=== PATIENT | female | born 1995 | race Asian ===

== ENCOUNTER 2016-04-05 13:53 | Observation (INO) | payer OTHER ==
[2016-04-05 14:03] VITALS: BMI 19.8
[2016-04-05] MEDS ORDERED: SODIUM CHLORIDE 1,000 ML IV STA ×3 (15:39→20:32)
[2016-04-05] MEDS ORDERED: ONDANSETRON 4 MG/2 ML VIAL IVPUSH ONE ×2 (15:55→20:32)
[2016-04-05] MEDS ORDERED: PANTOPRAZOLE SODIUM 40 MG in SODIUM CHLORIDE 100 ML IVPB ONE (15:55)
--- NOTE | 2016-04-05 16:35 | PDOC ---
History of Present Illness - General History Source: Patient Exam Limitations: No Limitations - History of Present Illness Initial Comments: 04/05/16 16:45 The patient is a 20 year old female with no significant past medical history, who presents to the ER with abdominal pain, vomiting, and no PO intake for several days. Patient states she began to feel chest tightness and epigastric pain with eating 6 days ago. She states she went to the urgent care 2 days ago and came back with negative test results, including a negative gallbladder scan. Patient was referred to the GI doctor. Symptoms persisted and patient went to [facility] ER two days ago and was given omeprazole, sucralfate, and ranitidine. Patient states she has not been able to eat for the past six days. She reports having six episodes of nonbilious/ non bloody vomiting last night without relief of symptoms. Patient also reports having chills for the past two days. She went to [facility] ER again today before coming to the ER here. She denies lightheadedness, diarrhea, headache, fever, or cough. <Kasey Mason - Last Filed: 04/05/16 16:45> <Dominga Murguia - Last Filed: 04/05/16 21:39> - General Chief Complaint: Pain, Acute Stated Complaint: WEAKNESS/ABDOMINAL PAIN Time Seen by Provider: 04/05/16 15:38 Past History <Kasey Mason - Last Filed: 04/05/16 16:45> - Past Medical History Other medical history: NONE - Psycho/Social/Smoking Cessation Hx Anxiety: No Suicidal Ideation: No Smoking History: Never smoked Have you smoked in the past 12 months: No Information on smoking cessation initiated: No Hx Alcohol Use: No Drug/Substance Use Hx: No Substance Use Type: None <Dominga Murguia - Last Filed: 04/05/16 21:39> - Past Medical History Allergies/Adverse Reactions: Allergies Allergy/AdvReac Type Severity Reaction Status Date / Time Penicillins Allergy Verified 04/05/16 13:59 Home Medications: Ambulatory Orders NK [No Known Home Medication] 04/05/16 Review of Systems - Review of Systems Able to Perform ROS?: Yes Comments:: 04/05/16 16:50 GENERAL/CONSTITUTIONAL: Chills, weakness. No fever. HEAD, EYES, EARS, NOSE AND THROAT: No change in vision. No ear pain or discharge. No sore throat. CARDIOVASCULAR: Chest tightness. No chest pain or shortness of breath. RESPIRATORY: No cough, wheezing, or hemoptysis. GASTROINTESTINAL: Abdominal pain, nausea, vomiting. No diarrhea or constipation. GENITOURINARY: No dysuria, frequency, or change in urination. MUSCULOSKELETAL: No joint or muscle swelling or pain. No neck or back pain. SKIN: No rash NEUROLOGIC: No headache, vertigo, loss of consciousness, or change in strength/ sensation. ENDOCRINE: No increased thirst. No abnormal weight change. HEMATOLOGIC/LYMPHATIC: No anemia, easy bleeding, or history of blood clots. ALLERGIC/IMMUNOLOGIC: No hives or skin allergy. <[facility],Kasey - Last Filed: 04/05/16 16:45> *Physical Exam - Vital Signs Last Vital Signs Temp Pulse Resp BP Pulse Ox 97.9 F 77 18 127/93 100 04/05/16 13:59 04/05/16 13:59 04/05/16 13:59 04/05/16 13:59 04/05/16 13:59 - Physical Exam Comments: 04/05/16 16:55 GENERAL: Awake, alert, and fully oriented, in no acute distress HEAD: No signs of trauma EYES: PERRLA, EOMI, sclera anicteric, conjunctiva clear ENT: Dry mucous membranes. Auricles normal inspection, hearing grossly normal, nares patent, oropharynx clear without exudates. NECK: Normal ROM, supple, no lymphadenopathy, JVD, or masses LUNGS: Breath sounds equal, clear to auscultation bilaterally. No wheezes, and no crackles HEART: Regular rate and rhythm, normal S1 and S2, no murmurs, rubs or gallops ABDOMEN: Tenderness on the right upper and right lower abdomen. Soft, normoactive bowel sounds. No guarding, no rebound. No masses EXTREMITIES: Normal range of motion, no edema. No clubbing or cyanosis. No cords, erythema, or tenderness NEUROLOGICAL: Cranial nerves II through XII grossly intact. Normal speech, normal gait SKIN: Warm, Dry, normal turgor, no rashes or lesions noted. <[facility],Kasey - Last Filed: 04/05/16 16:45> - Vital Signs Last Vital Signs Temp Pulse Resp BP Pulse Ox 97.9 F 77 18 127/93 100 04/05/16 13:59 04/05/16 13:59 04/05/16 13:59 04/05/16 13:59 04/05/16 13:59 <Dominga Murguia - Last Filed: 04/05/16 21:39> ED Treatment Course - LABORATORY CBC & Chemistry Diagram: 04/05/16 16:35 04/05/16 16:35 <Kasey Mason - Last Filed: 04/05/16 16:45> - LABORATORY CBC & Chemistry Diagram: 04/05/16 16:35 04/05/16 16:35 <Dmoinga Murguia - Last Filed: 04/05/16 21:39> Medical Decision Making - Medical Decision Making 04/05/16 17:[address] Dobbs at 5pm shift change. She was at [facility] earlier today, has been unable to tolerate PO since last night. Exam shows dry mucous membranes, RLQ tenderness. She has received zofran and protonix. Labs pending (however she has copy of labs from this afternoon- negative, CMP wnl, UA showing ketones). Awaiting CT a/p to r/o appendicitis vs other intra -abdominal pathology. She has been unable to tolerate PO contrast. F/u CT. If no acute findings, would attempt PO challenge. Low threshold for admission, as her symptoms are not improving. <Dominga Murguia - Last Filed: 04/05/16 21:39> *DC/Admit/Observation/Transfer - Attestations Scribe Attestion: 04/05/16 16:58 Documentation prepared by Kasey Mason, acting as ophthalmic medical technologist for Dominga Murguia MD, /DO. <Kasey Mason - Last Filed: 04/05/16 16:45> <Dominga Murguia - Last Filed: 04/05/16 21:39> Diagnosis at time of Disposition: Mesenteric adenitis, Nausea and vomiting - Discharge Dispostion Condition at time of disposition: Stable
[2016-04-05] MEDS ORDERED: PANTOPRAZOLE SODIUM 100 ML IVPB ONE (16:42)
[2016-04-05] MEDS ORDERED: ONDANSETRON 4 MG/2 ML VIAL ONE ×2 (16:43→20:36)
[2016-04-05 16:44] LABS: BASOPHIL 0.3 % (0-2.0); MCHC 33.9 g/dl (32.0-36.0); MEAN CELL VOLUME 91.4 fl (80-96); MEAN PLT VOLUME 8.1 fl (7.5-11.1); NEUTROPHILS 73.6 % (42.8-82.8); PLATELET COUNT 276 K/MM3 (134-434); RDW 12.5 % (11.6-15.6); WHITE BLOOD COUNT 7.2 K/mm3 (4.0-10.0)
[2016-04-05] MEDS ORDERED: PANTOPRAZOLE SODIUM 40 MG VIAL ONE (16:44)
[2016-04-05 16:50] LABS: URINE APPEARANCE CLEAR; URINE BILIRUBIN NEGATIVE (NEGATIVE); URINE BLOOD NEGATIVE (NEGATIVE); URINE COLOR YELLOW; URINE GLUCOSE (UA) 1+ (NEGATIVE); URINE KETONE 2+ (NEGATIVE); URINE LEUK ESTERASE NEGATIVE (NEGATIVE); URINE NITRITE NEGATIVE (NEGATIVE); URINE UROBILINOGEN NEGATIVE E.U./dl (0.2-1.0)
[2016-04-05 16:51] LABS: URINE PROTEIN 1+ (NEGATIVE)
[2016-04-05 17:12] LABS: ALBUMIN 4.1 g/dl (3.4-5.0); ANION GAP 10 (8-16); CALCIUM 8.8 mg/dL (8.5-10.1); CO2 25 mmol/L (21-32); CREATININE 0.5 mg/dL (0.55-1.02); GLUCOSE,RANDOM 99 mg/dL (74-106); SGOT/AST 12 U/L (15-37); SGPT/ALT 15 U/L (12-78); TOT PROT 7.1 g/dl (6.4-8.2)
[2016-04-05 17:13] LABS: ALK PHOS 35 U/L (45-117)
--- NOTE | 2016-04-05 20:34 | PDOC ---
*Physical Exam - Vital Signs Last Vital Signs Temp Pulse Resp BP Pulse Ox 97.9 F 74 18 133/82 95 04/05/16 13:59 04/05/16 19:59 04/05/16 19:59 04/05/16 19:59 04/05/16 19:59 ED Treatment Course - LABORATORY CBC & Chemistry Diagram: 04/05/16 16:35 04/05/16 16:35 - ADDITIONAL ORDERS Additional order review: Laboratory Results 04/05/16 04/05/16 16:35 16:35 Sodium 135 L Potassium 3.8 Chloride 100 Carbon Dioxide 25 Anion Gap 10 BUN 8 Creatinine 0.5 L Creat Clearance w eGFR > 60 Random Glucose 99 Calcium 8.8 Total Bilirubin 1.0 AST 12 L ALT 15 Alkaline Phosphatase 35 L Total Protein 7.1 Albumin 4.1 Lipase 60 L Serum , Qual Negative Urine Color Yellow Urine Appearance Clear Urine pH 5.0 Ur Specific [place] 1.030 Urine Protein 1+ H Urine Glucose (UA) 1+ H Urine Ketones 2+ H Urine Blood Negative Urine Nitrite Negative Urine Bilirubin Negative Urine Urobilinogen Negative Ur Leukocyte Esterase Negative 04/05/16 16:35 RBC 4.36 MCV 91.4 MCHC 33.9 RDW 12.5 MPV 8.1 Neutrophils % 73.6 Lymphocytes % 17.9 Monocytes % 8.2 Eosinophils % 0.0 Basophils % 0.3 - RADIOLOGY Radiology Studies Ordered: Category Date Time Status ABDOMEN & PELVIS CT WITH CONTR [CT] Stat CT Scan 04/05/16 16:54 Taken - Medications Given in the ED: ED Medications Discontinued Medications Generic Name Dose Route Start Last Admin Trade Name Freq PRN Reason Stop Dose Admin Sodium Chloride 1,000 mls @ 1,000 mls/hr 04/05/16 15:39 04/05/16 16:52 Normal Saline - IV 04/05/16 16:38 1,000 mls/hr ASDIR STA Administration Pantoprazole Sodium 40 mg/ 100 mls @ 200 mls/hr 04/05/16 15:55 04/05/16 16:52 Sodium Chloride IVPB 04/05/16 16:24 200 mls/hr ONCE ONE Administration Sodium Chloride 1,000 mls @ 1,000 mls/hr 04/05/16 16:54 04/05/16 18:46 Normal Saline - IV 04/05/16 17:53 1,000 mls/hr ASDIR STA Administration Ondansetron HCl 4 mg 04/05/16 15:55 04/05/16 16:52 Zofran Injection IVPUSH 04/05/16 15:56 4 mg ONCE ONE Administration Progress Note - Progress Note Progress Note: This patient was endorsed to me at [address] Murguia pending CT scan of the abdomen and pelvis. The CT scan showed inflammation of the mesenteric lymph nodes in the right lower quadrant with no appendicitis. I have reevaluated the patient multiple times since 5 PM. I have attempted to advance the patient's diet first starting with ice and then clear fluids but the patient has repeated episodes of nausea and bilious vomiting. Her abdomen is soft with mild right lower quadrant tenderness. The plan is to admit the patient for repeat abdominal exams, IV fluids for hydration, antiemetic therapy. *DC/Admit/Observation/Transfer Diagnosis at time of Disposition: Mesenteric lymphadenitis, Nausea and vomiting - Discharge Dispostion Condition at time of disposition: Stable Admit: Yes
--- NOTE | 2016-04-05 20:55 | PN ---
<Conner Burton - Last Filed: 04/05/16 20:55> Teaching Attending Note Name of Resident: Panchito Barrios ATTENDING PHYSICIAN STATEMENT I saw and evaluated the patient. I reviewed the resident's note and discussed the case with the resident. I agree with the resident's findings and plan as documented. SUBJECTIVE: OBJECTIVE: ASSESSMENT AND PLAN: <Mike Naranjoke - Last Filed: 04/05/16 22:17> Teaching Attending Note ATTENDING PHYSICIAN STATEMENT I saw and evaluated the patient. I reviewed the resident's note and discussed the case with the resident. I agree with the resident's findings and plan as documented. Imaging data and chart reviewed. SUBJECTIVE: The patient is a 20 year old female with no significant past medical history, who presented to the ER with chest and epigastric pain for several days. Patient stated she has had intermittent chest pain when eating for the last 6 months and that it has exacerbated in the last 6 days. Patient described her chest pain as tight, localized to the mid sternal region. Patient described her epigastric pain as constant pressure, non-radiating, and exacerbated by any oral intake. Patient reported that yesterday, she began experiencing nausea, vomiting, loss of appetite, chills, and sweats secondary to her epigastric pain. The patient reported that she has had 6 episodes of nonbloody (bilious) vomiting for 2 days. Patient has presented to Urgent Care and [facility] since onset of symptoms. The patient denied lightheadedness , cough, diarrhea, hematochezia. Patient reported subjective fever, sweats, and chills for 2 days. OBJECTIVE: Vital Signs: Last Vital Signs Temp Pulse Resp BP Pulse Ox 97.9 F 74 18 133/82 95 04/05/16 13:59 04/05/16 19:59 04/05/16 19:59 04/05/16 19:59 04/05/16 19:59 Physical Exam: GENERAL: Awake, alert, and fully oriented, in no acute distress. HEENT: Atraumatic. Moist mucosa. Normocephalic. No sinus tenderness. No LAD. NECK: No JVD. No thyroid masses. Supple. LUNGS: Clear to auscultation bilaterally. No wheezing, rhonchi or rales. HEART: Regular rate and rhythm, normal S1 and S2, no murmurs, rubs or gallops, peripheral pulses normal and equal bilaterally. ABDOMEN: (+) Diffuse tenderness and decreased bowel sounds. Soft, no guarding, no rebound. No Masses. MUSCULOSKELETAL: No joint tenderness or erythema. No muscle tenderness. Normal muscle bulk and tone. EXTREMITIES: Normal inspection, No edema. No clubbing or cyanosis. Moves all extremities. SKIN: Warm, dry, normal turgor, no rashes or lesions noted. Labs: CBCD WBC 7.2 K/mm3 (4.0-10.0) 04/05/16 16:35 RBC 4.36 M/mm3 (3.60-5.2) 04/05/16 16:35 Hgb 13.5 GM/dL (10.7-15.3) 04/05/16 16:35 Hct 39.9 % (32.4-45.2) 04/05/16 16:35 MCV 91.4 fl (80-96) 04/05/16 16:35 MCHC 33.9 g/dl (32.0-36.0) 04/05/16 16:35 RDW 12.5 % (11.6-15.6) 04/05/16 16:35 Plt Count 276 K/MM3 (134-434) 04/05/16 16:35 MPV 8.1 fl (7.5-11.1) 04/05/16 16:35 CMP Sodium 135 mmol/L (136-145) L 04/05/16 16:35 Potassium 3.8 mmol/L (3.5-5.1) 04/05/16 16:35 Chloride 100 mmol/L (98-107) 04/05/16 16:35 Carbon Dioxide 25 mmol/L (21-32) 04/05/16 16:35 Anion Gap 10 (8-16) 04/05/16 16:35 BUN 8 mg/dL (7-18) 04/05/16 16:35 Creatinine 0.5 mg/dL (0.55-1.02) L 04/05/16 16:35 Creat Clearance w eGFR > 60 (>60) 04/05/16 16:35 Calcium 8.8 mg/dL (8.5-10.1) 04/05/16 16:35 Total Bilirubin 1.0 mg/dL (0.2-1.0) 04/05/16 16:35 AST 12 U/L (15-37) L 04/05/16 16:35 ALT 15 U/L (12-78) 04/05/16 16:35 Alkaline Phosphatase 35 U/L (45-117) L 04/05/16 16:35 Total Protein 7.1 g/dl (6.4-8.2) 04/05/16 16:35 Albumin 4.1 g/dl (3.4-5.0) 04/05/16 16:35 CBC, BMP 04/05/16 16:35 04/05/16 16:35 Imaging: CT Abdomen and Pelvis. Impression: The appendix is normal There are shotty mesenteric lymph nodes in the right lower quadrant measuring up to 6 mm in short axis which are nonspecific although compatible with mesenteric adenitis No bowel distention Partially collapsed cyst in the left ovary measuring 1.8 cm Retroverted uterus with otherwise normal appearance Area of fatty infiltration in the left lobe of the liver about the fissure for the falciform ligament. The upper abdominal visceral organs are otherwise unremarkable The visualized lung bases are clear Interpreted and read by radiologist: Dr. Sandip Miranda ASSESSMENT AND PLAN: 1. Intractable vomiting and inability to tolerate PO- Dysphagia with swallowing for 6 months which has worsened over the past 6 days. Suggest esophageal dysfunction possibly esophageal spasm versus anatomic abnormality. Possible viral versus toxin gastroenteritis from food. - IVF - Zofran 4mg IVPB Q6H PRN if nausea and vomiting - Tylenol IV if pain - Can give trial of calcium channel blockers - GI consult 2. DVT risk is low -NPO -Early ambulation -SCDs Admit to observation Documentation prepared by Justus Naranjo, acting as medical office secretary for Dr. Micheal MD
--- NOTE | 2016-04-05 21:52 | HP ---
CHIEF COMPLAINT: pain abdomen, nausea, vomiting PCP: HISTORY OF PRESENT ILLNESS: The patient is a 20 year old female with no significant past medical history, who presents to the ER with abdominal pain since six days , vomiting from last night, and decrease PO intake for 3-4 days. Patient states she began to feel chest tightness and epigastric pain with eating 6 days ago. Pain was present in epigastric and middle of chest, pressure type, non radiating, pain occur on eating, get relieved by itself. She has couple of episodes of similar kind of pain in last few months. Pain not associated with sob. She states she went to the urgent care 2 days ago and came back with negative test results, including a negative gallbladder scan. Last night She reports having six episodes of bilious/ non bloody vomiting last night without relief of symptoms. Patient also reports having chills and diaphoresis last night. She denies lightheadedness, diarrhea, headache, fever, or cough. She denies burning micturation. patient also reports ER course was notable for: (1) Iv fluid, cbc, cmp (2)urine toxicology (3) Zofran, protonix Recent Travel: No PAST MEDICAL HISTORY: NO PAST SURGICAL HISTORY: No Social History: Smoking: No Alcohol: ocassional Drugs: no Family History: Allergies Penicillins Allergy (Verified 04/05/16 13:59) HOME MEDICATIONS: Home Medications Medication Instructions Recorded NK [No Known Home Medication] 04/05/16 REVIEW OF SYSTEMS CONSTITUTIONAL: Absent: fever, chills, diaphoresis, generalized weakness, malaise, loss of appetite, weight change HEENT: Absent: rhinorrhea, nasal congestion, throat pain, throat swelling, difficulty swallowing, mouth swelling, ear pain, eye pain, visual changes CARDIOVASCULAR: Absent: chest pain, syncope, palpitations, irregular heart rate, lightheadedness , peripheral edema RESPIRATORY: Absent: cough, shortness of breath, dyspnea with exertion, orthopnea, wheezing, stridor, hemoptysis GASTROINTESTINAL: Absent: abdominal pain, abdominal distension, nausea, vomiting, diarrhea, constipation, melena, hematochezia GENITOURINARY: Absent: dysuria, frequency, urgency, hesitancy, hematuria, flank pain, genital pain MUSCULOSKELETAL: Absent: myalgia, arthralgia, joint swelling, back pain, neck pain SKIN: Absent: rash, itching, pallor HEMATOLOGIC/IMMUNOLOGIC: Absent: easy bleeding, easy bruising, lymphadenopathy, frequent infections ENDOCRINE: Absent: unexplained weight gain, unexplained weight loss, heat intolerance, cold intolerance NEUROLOGIC: Absent: headache, focal weakness or paresthesias, dizziness, unsteady gait, seizure, mental status changes, bladder or bowel incontinence PSYCHIATRIC: Absent: anxiety, depression, suicidal or homicidal ideation, hallucinations. PHYSICAL EXAMINATION Vital Signs - 24 hr 04/05/16 04/05/16 13:59 19:59 Temperature 97.9 F Pulse Rate 77 Pulse Rate [ 74 Radial] Respiratory 18 18 Rate Blood Pressure 127/93 Blood Pressure 133/82 [Left Arm] O2 Sat by Pulse 100 95 Oximetry (%) GENERAL: Awake, alert, and fully oriented, in no acute distress. HEAD: Normal with no signs of trauma. EYES: Pupils equal, round and reactive to light, extraocular movements intact, sclera anicteric, conjunctiva clear. No lid lag. EARS, NOSE, THROAT: Ears normal, nares patent, oropharynx clear without exudates. Moist mucous membranes. NECK: Normal range of motion, supple without lymphadenopathy, JVD, or masses. LUNGS: Breath sounds equal, clear to auscultation bilaterally. No wheezes, and no crackles. No accessory muscle use. HEART: Regular rate and rhythm, normal S1 and S2 without murmur, rub or gallop. ABDOMEN: Soft, mild tender in epigastric RUQ and RLQ, not distended, normoactive bowel sounds, no guarding, no rebound, no masses. No hepatomegaly or splenomegaly. MUSCULOSKELETAL: Normal range of motion at all joints. No bony deformities or tenderness. No CVA tenderness. UPPER EXTREMITIES: 2+ pulses, warm, well-perfused. No cyanosis. No clubbing. Cap refill <2 seconds. No peripheral edema. LOWER EXTREMITIES: 2+ pulses, warm, well-perfused. No calf tenderness. No peripheral edema. NEUROLOGICAL: Cranial nerves II-XII intact. Normal speech. Normal gait. PSYCHIATRIC: Cooperative. Good eye contact. Appropriate mood and affect. SKIN: Warm, dry, normal turgor, no rashes or lesions noted. Laboratory Results - last 24 hr 04/05/16 04/05/16 04/05/16 16:35 16:35 16:35 WBC 7.2 RBC 4.36 Hgb 13.5 Hct 39.9 MCV 91.4 MCHC 33.9 RDW 12.5 Plt Count 276 MPV 8.1 Neutrophils % 73.6 Lymphocytes % 17.9 Monocytes % 8.2 Eosinophils % 0.0 Basophils % 0.3 Sodium 135 L Potassium 3.8 Chloride 100 Carbon Dioxide 25 Anion Gap 10 BUN 8 Creatinine 0.5 L Creat Clearance w eGFR > 60 Random Glucose 99 Calcium 8.8 Total Bilirubin 1.0 AST 12 L ALT 15 Alkaline Phosphatase 35 L Total Protein 7.1 Albumin 4.1 Lipase 60 L Serum , Qual Negative Urine Color Yellow Urine Appearance Clear Urine pH 5.0 Ur Specific [place] 1.030 Urine Protein 1+ H Urine Glucose (UA) 1+ H Urine Ketones 2+ H Urine Blood Negative Urine Nitrite Negative Urine Bilirubin Negative Urine Urobilinogen Negative Ur Leukocyte Esterase Negative The CT scan showed inflammation of the mesenteric lymph nodes in the right lower quadrant with no appendicitis. ASSESSMENT/PLAN: The patient is a 20 year old female with no significant past medical history, who presents to the ER with abdominal pain since six days , vomiting from last night, Intractable Vomiting/ Mesentric lymphadenitis : unable to tolerate PO, Possible viral versus toxin gastroenteritis from food. IV fluid D5NS at 100ml/hr on zofran IV 4mg prn IV protonix 40mg IV daily monitor vitals NPO for now ( patient vomits and complains of pain in chest on eating ) Chest Pain/ epigasrtric pain : Possibly due to esophageal spasm. complains of pain on eating from couple on months which got worse 6 days ago gastro consult consider calcium channel gaby Fluid : d5ns 100ml/hr electrolyte : normal nutrition: NPO for now dvt pro: b/l scd, ambulatory Gi pro: on protonix Dispo; place in observation [facility] surg Visit type - Emergency Visit Emergency Visit: Yes ED Registration Date: 04/05/16 Care time: The patient presented to the Emergency Department on the above date and was hospitalized for further evaluation of their emergent condition. - New Patient This patient is new to me today: Yes Date on this admission: 04/06/16 - Critical Care Critical Care patient: No
[2016-04-05] MEDS: DEXTROSE 5%-NORMAL SALINE 1,000 ML IV SCH (23:28)
[2016-04-06 01:00] LABS: URINE MARIJUANA THC POSITIVE ng/ml (CUTOFF=50)
[2016-04-06] MEDS ORDERED: KETOROLAC TROMETHAMINE 30 MG/1 ML VIAL IVPUSH ONE ×2 (02:53→06:45)
[2016-04-06 07:29] LABS: BASOPHIL 0.1 % (0-2.0); EOSINOPHIL 0.1 % (0-4.5); MCH 30.9 pg (25.7-33.7); MEAN CELL VOLUME 90.9 fl (80-96); MEAN PLT VOLUME 8.2 fl (7.5-11.1); NEUTROPHILS 71.8 % (42.8-82.8); PLATELET COUNT 254 K/MM3 (134-434); RDW 12.2 % (11.6-15.6); WHITE BLOOD COUNT 8.1 K/mm3 (4.0-10.0)
[2016-04-06] MEDS ORDERED: MAG HYDROX/AL HYDROX/SIMETH 30 ML UNIT-DOSE CUP PO PRN (07:40)
--- NOTE | 2016-04-06 07:49 | PN ---
Progress Note, Physician - Current Medication List Current Medications: Active Medications Al Hydroxide/Mg Hydroxide (Mylanta Oral Suspension -) 30 ml PO Q6H PRN PRN Reason: DYSPEPSIA Dextrose/Sodium Chloride (D5-Ns -) 1,000 mls @ 100 mls/hr IV ASDIR ISADORA Last Admin: 04/05/16 23:28 Dose: 100 mls/hr Pantoprazole Sodium 40 mg/ (Sodium Chloride) 100 mls @ 200 mls/hr IVPB DAILY [facility] Ondansetron HCl (Zofran Injection) 4 mg IVPB Q4H PRN PRN Reason: NAUSEA AND/OR VOMITING - Objective Vital Signs: Vital Signs Temperature 99.0 F 04/06/16 07:10 Pulse Rate 71 04/06/16 07:10 Respiratory Rate 20 04/06/16 07:10 Blood Pressure 153/100 04/06/16 07:10 O2 Sat by Pulse Oximetry (%) 99 04/05/16 23:15 Constitutional: Yes: Well Nourished, No Distress, Calm Eyes: Yes: WNL, Conjunctiva Clear HENT: Yes: WNL, Atraumatic, Normocephalic Neck: Yes: WNL, Supple, Trachea Midline Cardiovascular: Yes: WNL, Regular Rate and Rhythm Respiratory: Yes: WNL, Regular, CTA Bilaterally Gastrointestinal: Yes: Normal Bowel Sounds, Soft, Tenderness. No: Tenderness, Rebound Musculoskeletal: Yes: WNL Extremities: Yes: WNL Edema: No Integumentary: Yes: WNL Neurological: Yes: WNL, Alert, Oriented ...Motor Strength: WNL Psychiatric: Yes: WNL Labs: CBC, BMP 04/06/16 06:00 Impression/Plan Impression/Plan: 20 year old woman admitted for severe nausea/vomitting -symptoms began last week and have been persistant -CT appears to show gastritis with some lymph node enlargement; follow up official read -follow up GI consult -trial of clear liquids when able -cont IVF -zofran prn Visit type - Emergency Visit Emergency Visit: Yes ED Registration Date: 04/05/16 Care time: The patient presented to the Emergency Department on the above date and was hospitalized for further evaluation of their emergent condition. - New Patient This patient is new to me today: Yes Date on this admission: 04/06/16 - Critical Care Critical Care patient: No - Discharge Referral Referred to [facility] Med [facility] No
[2016-04-06] MEDS ORDERED: METOCLOPRAMIDE HCL INJECTION 10 MG/2 ML VIAL IVPB PRN (08:12)
[2016-04-06 08:46] LABS: ALBUMIN 3.8 g/dl (3.4-5.0); ALK PHOS 36 U/L (45-117); ANION GAP 9 (8-16); CALCIUM 7.9 mg/dL (8.5-10.1); CO2 25 mmol/L (21-32); CREATININE 0.5 mg/dL (0.55-1.02); GLUCOSE,RANDOM 106 mg/dL (74-106); PHOSPHOROUS 1.9 mg/dL (2.5-4.9); SGOT/AST 10 U/L (15-37); SGPT/ALT 15 U/L (12-78); TOT PROT 6.4 g/dl (6.4-8.2)
--- NOTE | 2016-04-06 10:26 | CON.GI ---
Consult Consult Specialty:: GI Referred by:: Hospitalists Reason for Consultation:: Upper abdominal / chest pain - History of Present Illness Chief Complaint: "I have pain whenever I eat" History of Present Illness: 20 year old woman seeking evaluation of the following: Pain in the lower chest / epigastrium minutes after eating with associated shortness of breath ast times as well. She states that she first started experiencing this intermittently about 2 years ago. She alludes to being seen by a specialist but never had an upper endoscopy. More recently she has been experiencing these symptoms every day with meals. There was no vomiting during that time. She She went to urgent care 4 days ago and they prescribed Zantac, sucralfate,omeprazole. She took them all together but quickly vomited them up. She sough evaluation at the [facility] ER. She states that they did blood work but no imaging and sent her home. Symptoms persisted and she went back the the [facility] and ultimately left there and came to the [facility] ER for further evaluation. she had a CT scan of the abdomen and pelvis that preliminarily was read as shotty lymphnodes in the RLQ. there has been no further vomiting but she does complain of nausea. She denies associated dysphagia, odynophagia, night sweats, unintentional weight loss,melena, rectal bleeding, diarrhea, change in bowel habits, hematemesis, chronic NSAID use. She is adopted and does not know her biological family's history. - History Source History Provided By: Patient Limitations to Obtaining History: No Limitations - Past Medical History ...: No Additional Medical History: Denies any standing medical problems - Past Surgical History Additional Surgical History: Denies - Alcohol/Substance Use Hx Alcohol Use: Yes (social) History of Substance Use: reports: Marijuana (last smoked 1 week ago) - Smoking History Smoking history: Never smoked Have you smoked in the past 12 months: No - Social History Usual Living Arrangement: Other (with family) ADL: Independent Occupation: process control board operator student @ [employer] Place of : [facility] History of Recent Travel: No Home Medications - Allergies Allergies/Adverse Reactions: Allergies Allergy/AdvReac Type Severity Reaction Status Date / Time Penicillins Allergy Verified 04/05/16 13:59 - Home Medications Home Medications: Ambulatory Orders NK [No Known Home Medication] 04/05/16 Family Disease History - Family Disease History Other Family History: Patient adopted. does not know biological family history Review of Systems - Review of Systems Constitutional: denies: Chills, Unintentional Wgt. Loss HENT: denies: Difficult Swallowing Cardiovascular: reports: Chest Pain Respiratory: denies: Cough, SOB Gastrointestinal: reports: Abdominal Pain. denies: Constipation, Diarrhea, Dysphagia, Rectal Bleeding Physical Exam-GI Vital Signs: Vital Signs Temperature 99.0 F 04/06/16 07:10 Pulse Rate 64 04/06/16 10:03 Respiratory Rate 17 04/06/16 10:03 Blood Pressure 140/87 04/06/16 10:03 O2 Sat by Pulse Oximetry (%) 99 04/05/16 23:15 Constitutional: Yes: Calm Eyes: No: Sclera Icterus Cardiovascular: Yes: Regular Rate and Rhythm. No: Murmur Respiratory: Yes: CTA Bilaterally Gastrointestinal Inspection: No: Distention, Scars ...Auscultate: Yes: Normoactive Bowel Sounds ...Palpate: Yes: Tenderness (Mild TTP epigastrium) ...Percussion: No: Tympanitic Edema: No Neurological: Yes: Alert, Oriented Labs: CBC, BMP 04/06/16 06:00 04/06/16 06:00 Hepatic Panel Total Bilirubin 1.0 mg/dL (0.2-1.0) 04/06/16 06:00 AST 10 U/L (15-37) L 04/06/16 06:00 ALT 15 U/L (12-78) 04/06/16 06:00 Alkaline Phosphatase 36 U/L (45-117) L 04/06/16 06:00 Albumin 3.8 g/dl (3.4-5.0) 04/06/16 06:00 Imaging - Results Cat Scan: Report Reviewed ([facility] ? shotty lymphnodes in RLQ: ? adenitis: (patient without RLQ symptoms)), Image Reviewed Problem List - Problems (1) Nausea and vomiting Assessment/Plan: No further vomiting. Symptoms seem to be related to a persistent lower chest pain as well. ? reflux / ? esophageal spasm / ? eosinophilic esophagitis or alternate pathology such as hiatal hernia / PUD. ? if persistent marijuana use playing a role (potentiation of a cyclic vomiting syndrome) Plan: Protonix 40mg IVPB daily Trial of clears Advised cessaion of marijuana Esophagram with UGIS for tomorrow if she can tolerate liquids today. if not will proceed with upper endoscopy first. We discussed potential risks of the procedure like but not limited to bleeding, perforation, infection sedation medication effects all of which could be potentially life threatening. She has agreed to the procedure. Other recommendations pending the above Code(s): R11.2 - NAUSEA WITH VOMITING, UNSPECIFIED
[2016-04-06] MEDS: PANTOPRAZOLE SODIUM 100 ML IVPB SCH (12:10)
[2016-04-06] MEDS: ONDANSETRON 4 MG/2 ML VIAL IVPB PRN (17:55)
[2016-04-06] MEDS: DEXTROSE 5%-NORMAL SALINE 1,000 ML IV SCH (17:57)
--- NOTE | 2016-04-07 00:43 | EKG ---
Test Reason : Blood Pressure : / mmHG Vent. Rate : 071 BPM Atrial Rate : 071 BPM P-R Int : 116 ms QRS Dur : 080 ms QT Int : 398 ms P-R-T Axes : 056 052 035 degrees QTc Int : 432 ms NORMAL SINUS RHYTHM LOW VOLTAGE QRS BORDERLINE ECG NO PREVIOUS ECGS AVAILABLE Confirmed by RAMO GILLESPIE MD ([id number]) on 04/07/2016 12:43:09 AM Referred By: Confirmed By:RAMO GILLESPIE MD
[2016-04-07] MEDS: ONDANSETRON 4 MG/2 ML VIAL IVPB PRN (01:36)
[2016-04-07] MEDS: DEXTROSE 5%-NORMAL SALINE 1,000 ML IV SCH ×2 (03:54→05:02)
[2016-04-07] MEDS: PANTOPRAZOLE SODIUM 100 ML IVPB SCH (09:40)
--- NOTE | 2016-04-07 15:19 | PN ---
GI Progress Note Subjective: Esophagram not performed today apparently because today is a holiday tolerated clear liquids today - Objective Vital Signs: Vital Signs Temperature 98.7 F 04/07/16 08:44 Pulse Rate 66 04/07/16 08:44 Respiratory Rate 18 04/07/16 08:44 Blood Pressure 154/96 04/07/16 08:44 O2 Sat by Pulse Oximetry (%) 99 04/05/16 23:15 Constitutional: Calm Eyes: No: Sclera Icterus Cardiovascular: Yes: Regular Rate and Rhythm ...Auscultate: Yes: Normoactive Bowel Sounds ...Palpate: Yes: Tenderness (mild TTP epigastrium). No: Guarding ...Percussion: No: Tympanitic Edema: No Neurological: Yes: Alert, Oriented Labs: CBC, BMP 04/06/16 06:00 04/06/16 06:00 Hepatic Panel Total Bilirubin 1.0 mg/dL (0.2-1.0) 04/06/16 06:00 AST 10 U/L (15-37) L 04/06/16 06:00 ALT 15 U/L (12-78) 04/06/16 06:00 Alkaline Phosphatase 36 U/L (45-117) L 04/06/16 06:00 Albumin 3.8 g/dl (3.4-5.0) 04/06/16 06:00 Problem List - Problems (1) Nausea and vomiting Assessment/Plan: No current N/V, still with mild epigastric tendeness on exam Esophagram not performed Will proceed with upper endoscopy tomorrow. Depending on results she may need further outpatient work-up including esophagram / esophageal manometry NPO after midnight Code(s): R11.2 - NAUSEA WITH VOMITING, UNSPECIFIED
--- NOTE | 2016-04-07 16:28 | PN ---
Progress Note, Physician - Current Medication List Current Medications: Active Medications Al Hydroxide/Mg Hydroxide (Mylanta Oral Suspension -) 30 ml PO Q6H PRN PRN Reason: DYSPEPSIA Pantoprazole Sodium (Protonix 40mg Ivpb (Pre-Docked)) 100 mls @ 200 mls/hr IVPB DAILY ISADORA Last Admin: 04/07/16 09:40 Dose: 200 mls/hr Dextrose/Sodium Chloride (D5-1/2ns -) 1,000 mls @ 100 mls/hr IV ASDIR ISADORA Metoclopramide HCl (Reglan Injection -) 10 mg IVPB Q6H PRN PRN Reason: NAUSEA AND/OR VOMITING Last Admin: 04/06/16 12:10 Dose: 10 mg Ondansetron HCl (Zofran Injection) 4 mg IVPB Q4H PRN PRN Reason: NAUSEA AND/OR VOMITING Last Admin: 04/07/16 01:36 Dose: 4 mg - Objective Vital Signs: Vital Signs Temperature 98.7 F 04/07/16 08:44 Pulse Rate 59 L 04/07/16 12:00 Respiratory Rate 18 04/07/16 12:00 Blood Pressure 151/99 04/07/16 12:00 O2 Sat by Pulse Oximetry (%) 99 04/05/16 23:15 Constitutional: Yes: Well Nourished, No Distress, Calm Eyes: Yes: WNL, Conjunctiva Clear HENT: Yes: WNL, Atraumatic, Normocephalic Neck: Yes: WNL, Supple, Trachea Midline Cardiovascular: Yes: WNL, Regular Rate and Rhythm Respiratory: Yes: WNL, Regular, CTA Bilaterally Gastrointestinal: Yes: WNL, Normal Bowel Sounds Musculoskeletal: Yes: WNL Extremities: Yes: WNL Edema: No Integumentary: Yes: WNL Neurological: Yes: WNL, Alert, Oriented ...Motor Strength: WNL Psychiatric: Yes: WNL Labs: CBC, BMP 04/06/16 06:00 04/06/16 06:00 Impression/Plan Impression/Plan: 20 year old woman admitted for severe nausea/vomitting -today pt gave different history than yesterday; history is now that she gets occasional cramping pain in epigastric region and regurgitates food when eating solids which happened very infrequently over the past few years and was much more frequent as of late -history sounds suspicious for esophageal spasm -GI consult appreciated; was for upper GI series but test was not able to be done today because necessary staff was not available today -now tolerating clear liquids and advanced to full liquid by GI attending -for EGD in AM -erick prn Visit type - Emergency Visit Emergency Visit: Yes ED Registration Date: 04/05/16 Care time: The patient presented to the Emergency Department on the above date and was hospitalized for further evaluation of their emergent condition. - New Patient This patient is new to me today: No - Critical Care Critical Care patient: No - Discharge Referral Referred to [facility] Med P.C.: No
--- NOTE | 2016-04-07 17:07 | PN ---
Physical Exam: SUBJECTIVE: Patient seen and examined at bedside. patient reports mild nausea only this morning. No current pain or vometing, was able to tolerate clear liquid diet. denies n/v/d/c/, fevers, chills, CP, SOB. was for upper GI series but no done as per holiday. endoscopy tomorrow. NPO at midnight. Today different history: history is now patient has had progressive post prandial pain (tightening/squeezing) that she gets occasional 2 with solids and never liquids. recently it has progressed to both solids and liquids and more frequent. patient reports recently unable to keep anything down and avoided eating. OBJECTIVE: Vital Signs Period Temp Pulse Resp BP Sys/Hoang Pulse Ox Last 24 Hr 98.1 F-99.1 F 59-66 18-18 139-154/80-99 GENERAL: The patient is awake, alert, and fully oriented, in no acute distress. Sitting in bed comfortably. HEAD: Normal with no signs of trauma. EYES: PERRL, extraocular movements intact, sclera anicteric, conjunctiva clear. No ptosis. ENT: Ears normal, nares patent, oropharynx clear without exudates, moist mucous membranes. NECK: Trachea midline, full range of motion, supple. LUNGS: Breath sounds equal, clear to auscultation bilaterally, no wheezes, no crackles, no accessory muscle use. HEART: Regular rate and rhythm, S1, S2 without murmur, rub or gallop. ABDOMEN: Soft, mild discomfort on palpation in epigastrum, nondistended, normoactive bowel sounds, no guarding, no rebound, no hepatosplenomegaly, no masses. EXTREMITIES: 2+ pulses, warm, well-perfused, no edema. NEUROLOGICAL: Normal speech, gait not observed. PSYCH: Normal mood, normal affect. SKIN: Warm, dry, normal turgor, no rashes or lesions noted Active Medications Generic Name Dose Route Start Last Admin Trade Name Freq PRN Reason Stop Dose Admin Al Hydroxide/Mg Hydroxide 30 ml 04/06/16 07:40 Mylanta Oral Suspension - PO Q6H PRN DYSPEPSIA Pantoprazole Sodium 100 mls @ 200 mls/hr 04/06/16 10:00 04/07/16 09:40 Protonix 40mg Ivpb (Pre-Docked) IVPB 200 mls/hr DAILY ISADORA Administration Dextrose/Sodium Chloride 1,000 mls @ 100 mls/hr 04/08/16 00:01 D5-1/2ns - IV ASDIR ISADORA Metoclopramide HCl 10 mg 04/06/16 08:12 04/06/16 12:10 Reglan Injection - IVPB 10 mg Q6H PRN Administration NAUSEA AND/OR VOMITING Ondansetron HCl 4 mg 04/05/16 21:48 04/07/16 01:36 Zofran Injection IVPB 4 mg Q4H PRN Administration NAUSEA AND/OR VOMITING ASSESSMENT/PLAN: The patient is a 20 year old female with no significant past medical history, who presents to the ER with progressive postprandial chest/epigastric pain ( tightening/squeezing) that she gets occasionaly with solids and never liquids. recently it has progressed to both solids and liquids and more frequent. patient reports recently unable to keep anything down and avoided eating occompanied with abdominal and vomiting. Intractable Vomiting/ Mesentric lymphadenitis : no pain, no vometic, minimal nausea in am. now tolerating clear liquids and advanced to full liquid, and NPO at midnight per GI attending -Esophagram was not done today as per today is a holiday. -IV protonix 40mg IV daily -zofran IV 4mg prn -EGD in AM per GI attending, FEN -Oral hydration -normal, replete as needed -advance to regular diet, NPO after midnight dvt pro: b/l scd, ambulatory GI pro: on protonix Dispo; observation med surg, EGD tomorrow, may need further workup as outpatient. (esophagram / esophageal manometry) Visit type - Emergency Visit Emergency Visit: Yes ED Registration Date: 04/05/16 Care time: The patient presented to the Emergency Department on the above date and was hospitalized for further evaluation of their emergent condition. - New Patient This patient is new to me today: Yes Date on this admission: 04/05/16 - Critical Care Critical Care patient: No
[2016-04-08] MEDS ORDERED: DEXTROSE 5%-0.45% SALINE 1,000 ML IV SCH (00:01)
[2016-04-08] MEDS ORDERED: PROPOFOL 20 ML ONE ×3 (09:53)
--- NOTE | 2016-04-08 10:52 | PN ---
Progress Note (short form) - Note Progress Note: EGD report in front of physical chart and to be scanned into [employer] Problem List - Problems (1) Nausea and vomiting Code(s): R11.2 - NAUSEA WITH VOMITING, UNSPECIFIED
[2016-04-08] MEDS ORDERED: FLUCONAZOLE 100 MG TABLET (UD) PO SCH (11:00)
[2016-04-08] MEDS: PANTOPRAZOLE SODIUM 100 ML IVPB SCH (11:49)
[2016-04-08 16:39] VITALS: BP 120/76; PULSE 68; TEMP 98.4
--- NOTE | 2016-04-08 17:30 | PN ---
Teaching Attending Note Name of Resident: Malinda Farrar ATTENDING PHYSICIAN STATEMENT I saw and evaluated the patient. I reviewed the resident's note and discussed the case with the resident. I agree with the resident's findings and plan as documented. SUBJECTIVE:seen after EGD/esophagram. states her symptoms of dysphagia and epigastric pain has resolved. states shes had intermittent episodes over the past few months. admits to smoking THC. denies risk behavior for HIV. denies inhaler use. OBJECTIVE: Last Vital Signs Temp Pulse Resp BP Pulse Ox 98.4 F 68 18 120/76 100 04/08/16 15:00 04/08/16 15:00 04/08/16 15:00 04/08/16 15:00 04/08/16 11:03 General NAD Abdomen soft NT/ND ASSESSMENT AND PLAN: 20 yo F with no PMH presented to the ER and was admitted for further evaluation of their emergent condition 1. Epigastric pain- evaluated by GI with EGD and esophgram done today. showing esophageal candidasis. check HIV quicktest. started on fluconazole will need for 21 days. informed that will need LFT testing in 1-2 weeks. will arrange for PMD referral as outpatient as does not currently have at this time. will f/u with GI. explained results and plan with mother present at bedside. answered all questions. agreed with plan.
[2016-04-08 18:44] LABS: HIV 1 & 2 AB NEGATIVE; HIV 1 AGp24 NEGATIVE
--- NOTE | 2016-04-08 19:27 | DS ---
Physical Exam: SUBJECTIVE: Patient seen and examined at bedside. patient reports no nausea only this morning. No current pain or vomiting, was able to tolerate diet. denies n/v/d/c/, fevers, chills, CP, SOB. patient verbally consented to HIV testing: HIV quick test negative. discussed results with patient, while family out of the room. OBJECTIVE: Vital Signs Period Temp Pulse Resp BP Sys/Hoang Pulse Ox Last 24 Hr 97.5 F-98.7 F 53-92 16-18 94-148/59-102 100-100 PHYSICAL EXAM GENERAL: The patient is awake, alert, and fully oriented, in no acute distress. Sitting in bed comfortably. HEAD: Normal with no signs of trauma. EYES: PERRL, extraocular movements intact, sclera anicteric, conjunctiva clear. No ptosis. ENT: Ears normal, nares patent, oropharynx clear without exudates, moist mucous membranes. NECK: Trachea midline, full range of motion, supple. LUNGS: Breath sounds equal, clear to auscultation bilaterally, no wheezes, no crackles, no accessory muscle use. HEART: Regular rate and rhythm, S1, S2 without murmur, rub or gallop. ABDOMEN: Soft, NT epigastrum, nondistended, normoactive bowel sounds, no guarding, no rebound, no hepatosplenomegaly, no masses. EXTREMITIES: 2+ pulses, warm, well-perfused, no edema. NEUROLOGICAL: Normal speech, gait not observed. PSYCH: Normal mood, normal affect. SKIN: Warm, dry, normal turgor, no rashes or lesions noted LABS Laboratory Results - last 24 hr 04/08/16 15:30 HIV 1&2 Antibody Screen Negative HIV P24 Antigen Negative Active Medications Generic Name Dose Route Start Last Admin Trade Name Freq PRN Reason Stop Dose Admin Al Hydroxide/Mg Hydroxide 30 ml 04/06/16 07:40 Mylanta Oral Suspension - PO Q6H PRN DYSPEPSIA Fluconazole 100 mg 04/08/16 11:00 04/08/16 11:50 Diflucan - PO 100 mg DAILY ISADORA Administration Dextrose/Sodium Chloride 1,000 mls @ 100 mls/hr 04/08/16 00:01 04/08/16 01:11 D5-1/2ns - IV 100 mls/hr ASDIR ISADORA Administration Laboratory Tests 04/05/16 04/08/16 16:35 15:30 Serum , Qual Negative HIV 1&2 Antibody Screen Negative HIV P24 Antigen Negative CXR:There are no prior studies for comparison. There are clear lungs, normal mediastinum and sharp angles. The bones and soft tissues are intact. There is no sign of a pneumoperitoneum or bowel obstruction. Impression: No acute pathology. No comparison studies. Upper GI series: The esophagus demonstrates normal swallowing mechanism and normal peristaltic activity. No abnormal dilatation of esophagus is noted and no stricture or filling defects are seen. No gastroesophageal reflux observed. No evidence of hiatal hernia. No evidence of Zenker's diverticulum The stomach distends with barium and demonstrates no abnormality of the mucosa pattern, peristalsis , contractibility or contour deformity. The duodenal bulb and duodenal sweep demonstrates a normal mucosal pattern without ulceration, inflammatory changes. Duodenal sweep is not widened. No abnormality seen in the visualized portion of nondilated opacified small bowel. Impression. Normal upper GI series. CT ABD: The liver, spleen, pancreas, adrenal glands and kidneys demonstrate no significant abnormalities. There are slightly prominent lymph nodes within the right lower quadrant. Mesenteric adenitis cannot be excluded. There is no evidence of pneumoperitoneum, bowel obstruction or intra-abdominal abscess. There is no CT evidence of acute appendicitis or diverticulitis. Examination of the pelvis demonstrates an involuting cyst within the left ovary measuring approximately 1.5 cm. A small amount of free fluid is also present about the left adnexa. There is no evidence of pelvic masses, fluid collections or lymphadenopathy. The uterus is retroverted. There is no evidence of acute bony pathology. IMPRESSION: 1. Prominent right lower quadrant lymph nodes. Mesenteric adenitis cannot be excluded. 2. Involuting cyst left ovary with small amount of free fluid. 3. No evidence of appendicitis or acute pathology within the abdomen or pelvis. Please see above discussion. GI DR. Croft endoscopy HOSPITAL COURSE: Date of Admission:04/05/16 Date of Discharge: 04/08/16 20 yo F with no PMH presented to the ER with recurrent odynophagia, lower chest pain, and dydpepsia on endoscopy was found to have white exudate consistant with candidiasis. on CT abd found esenteric adenitis. HIV Negative. started on fluconazole 200 mg daily will need for 21 days. discussed with patient the importance of checking LFT in 1-2 weeks. will arrange for PMD referral as outpatient as does not currently have at this time. will f/u with GI. patient currently clinically stable, afebrile, no leukcytosis, and vs normal. no current complaints. tolerated diet well. Minutes to complete discharge: 35 Discharge Summary Reason For Visit: MESENTERIC LYMPHATENTITIS Current Active Problems Esophageal candidiasis (Acute) Mesenteric adenitis (Acute) Nausea and vomiting (Acute) Mild tetrahydrocannabinol (THC) abuse (Chronic) Condition: Stable - Instructions Diet, Activity, Other Instructions: You are taking an antifungal for 21 days. during this time avoid acid suppressant and alcohol You will need to have your liver enzymes checked in 1-2 weeks. You can do this following up with a primary care doctor. information on one has been provided. Follow up with GI at the end of your antifungal course If your symptoms worsen return to the ER. Referrals: Jose Manuel Croft DO [Staff Physician] - 2 Weeks Jean Henriquez MD [Staff Physician] - 1 Week Disposition: HOME - Home Medications Comprehensive Discharge Medication List: Ambulatory Orders Fluconazole 200 mg PO DAILY #21 tablet 04/08/16 This patient is new to me today: Yes Date on this admission: 04/08/16 Emergency Visit: No Critical Care patient: No - Discharge Referral Referred to [facility] Yes Physician Referral: Jean Henriquez MD (Int Med)
--- NOTE | 2016-04-09 14:37 | PATH ---
Surgical Pathology Report Patient Name: PATTI CHAMPION Med. Rec. #: [id number] /Age/Gender: 1995 (Age: 20) / F Account: [id number] Location: [facility] MED/SURG Taken: 04/08/2016 Received: 04/08/2016 Reported: 04/09/2016 Physicians: Mihir Croft D.O. Specimen(s) Received A: BX DUODENUM B: BX ANGULARIS & BODY C: BX DISTAL & MID ESOPHAGUS Clinical History Epigastric pain, vomiting Rule out eosinophilic esophagitis, r/o Neela, gastritis Final Diagnosis A. DUODENUM, BIOPSY: DUODENAL MUCOSA WITH CHRONIC INFLAMMATION. NO HISTOLOGIC EVIDENCE OF GLUTEN SENSITIVE ENTEROPATHY (CELIAC DISEASE). B. STOMACH, ANGULARIS AND BODY, BIOPSY: GASTRIC OXYNTIC MUCOSA WITH FOCALLY ACTIVE MODERATE CHRONIC GASTRITIS WITH FOCAL SURFACE EROSION. IMMUNOSTAIN FOR H. PYLORI IS NEGATIVE FOR ORGANISMS. C. ESOPHAGUS, DISTAL AND MID, BIOPSY: SQUAMOUS EPITHELIUM WITH FOCAL ACTIVE AND CHRONIC INFLAMMATION, REFLUX TYPE CHANGES NO COLUMNAR EPITHELIUM PRESENT (NO INTESTINAL METAPLASIA/IDENTIFIED). NO EVIDENCE OF EOSINOPHILIC ESOPHAGITIS. FUNGAL ORGANISMS MORPHOLOGICALLY CONSISTENT WITH NEELA SPECIES IDENTIFIED WITH PAS STAIN. Electronically Signed Aryan Ruiz M.D. Gross Description A. Received in formalin, labeled "biopsy duodenum" is a olsen, irregular portion of soft tissue measuring 0.5 cm in greatest dimension. The specimen is submitted in toto in one cassette. B. Received in formalin, labeled "angularis and body" are 2 olsen, irregular portions of soft tissue measuring 0.3 and 0.4 cm in greatest dimension. The specimens are submitted in toto in one cassette. C. Received in formalin, labeled "distal and mid esophagus" are 3 olsen, irregular portions of soft tissue ranging from 0.1-0.2 cm in greatest dimension. The specimens are submitted in toto in one cassette. 04/08/201604/08/2016
--- NOTE | 2016-04-10 13:29 | PATH ---
Cytology Non-Gynecological Report Patient Name: PATTI CHAMPION Med. Rec. #: [id number] /Age/Gender: 1995 (Age: 20) / F Account: [id number] Location: [facility] MED/SURG Taken: 04/08/2016 Received: 04/09/2016 Reported: 04/10/2016 Physicians: Mihir Croft D.O. Specimen(s) Received ESOPHAGEAL BRUSH Clinical History Rule out lester Final Diagnosis ESOPHAGUS, BRUSHING: SATISFACTORY FOR EVALUATION. NO MALIGNANT CELLS IDENTIFIED. REACTIVE SQUAMOUS CELLS. ACUTE INFLAMMATION. FUNGAL ORGANISMS MORPHOLOGICALLY CONSISTENT WITH LESTER SPECIES PRESENT. Comment: Refer to [id number] for the biopsy and special stain results. Electronically Signed Aryan Ruiz M.D. Gross Description Received are one slide and a brush in 95% alcohol. One Pap stained cytofunnel slide, one Pap stained smear slide and one cell block are made.
== END 2016-04-08 20:03 | disposition home or self-care (01) ==
LOC: JER 13:53 → JERBED 21:07 → J7W 04-06 00:27
PROVIDERS: ADMIT Internal Medicine; ATTEND Internal Medicine
PROC: 0DB98ZZ Excision of Duodenum, Via Natural or Artificial Opening Endoscopic (ICD-10-PCS; 2016-04-08)
PROC: 0DB68ZZ Excision of Stomach, Via Natural or Artificial Opening Endoscopic (ICD-10-PCS; 2016-04-08)
PROC: 0DB58ZZ Excision of Esophagus, Via Natural or Artificial Opening Endoscopic (ICD-10-PCS; principal; 2016-04-08 12:30)
DX: B37.89 Other sites of candidiasis (principal); I88.0 Nonspecific mesenteric lymphadenitis; R11.2 Nausea with vomiting, unspecified; K22.4 Dyskinesia of esophagus; K52.89 Other specified noninfective gastroenteritis and colitis; K29.60 Other gastritis without bleeding; N83.292 Other ovarian cyst, left side; I88.8 Other nonspecific lymphadenitis; R10.31 Right lower quadrant pain; R10.13 Epigastric pain
CPT/HCPCS: 36415; 71020-TC; 74177-TC; 74220-TC; 74240-TC; 80053; 80307; 81003; 81015; 83690; 83735; 84100; 84703; 85025; 87389; 88104; 88305-TC; 88312-TC; 88342-TC; 93005; 93010; 99285-25; G0378